=== PATIENT | male | born 1990 | race Caucasian/White ===

== ENCOUNTER → 2017-03-13 | Outpatient (CLI) | payer BC | LOC: MHCPAIN 08:09 | DX: G89.29 Other chronic pain (principal); M47.817 Spondylosis without myelopathy or radiculopathy, lumbosacral region; M54.16 Radiculopathy, lumbar region | CPT/HCPCS: G0463 ==

== ENCOUNTER 2017-06-01 07:30 | Outpatient (RCR) | payer BC | END 2017-06-02 12:48 | LOC: WSPT 07:30 | DX: M47.896 Other spondylosis, lumbar region (principal) | CPT/HCPCS: G0283-GP ==

== ENCOUNTER → 2017-06-10 | Outpatient (CLI) | payer BC | LOC: MHCPAIN 07:54 | DX: G89.29 Other chronic pain (principal); M47.27 Other spondylosis with radiculopathy, lumbosacral region | CPT/HCPCS: G0463 ==

== ENCOUNTER → 2017-06-11 | Outpatient (CLI) | payer BC | LOC: MHCPAIN 08:09 | DX: M47.27 Other spondylosis with radiculopathy, lumbosacral region (principal); M51.17 Intervertebral disc disorders with radiculopathy, lumbosacral region; M48.07 Spinal stenosis, lumbosacral region | CPT/HCPCS: J1100; Q9967 ==

== ENCOUNTER → 2017-06-26 | Outpatient (CLI) | payer BC | LOC: MHCPAIN 08:02 | DX: G89.29 Other chronic pain (principal); M47.27 Other spondylosis with radiculopathy, lumbosacral region | CPT/HCPCS: G0463 ==

== ENCOUNTER → 2017-07-02 | Outpatient (CLI) | payer BC | LOC: MHCPAIN 08:29 | DX: M47.27 Other spondylosis with radiculopathy, lumbosacral region (principal) | CPT/HCPCS: J1100; Q9967 ==

== ENCOUNTER → 2017-07-20 | Outpatient (CLI) | payer BC | LOC: MHCPAIN 09:15 | DX: G89.29 Other chronic pain (principal); M47.27 Other spondylosis with radiculopathy, lumbosacral region | CPT/HCPCS: G0463 ==

== ENCOUNTER → 2018-01-12 | Outpatient (CLI) | payer BC | LOC: MHCPAIN 08:27 | DX: G89.29 Other chronic pain (principal); M47.817 Spondylosis without myelopathy or radiculopathy, lumbosacral region; M54.16 Radiculopathy, lumbar region | CPT/HCPCS: G0463 ==

== ENCOUNTER → 2018-07-27 | Outpatient (CLI) | payer BC | LOC: MHCPAIN 15:30 | DX: G89.29 Other chronic pain (principal); M47.817 Spondylosis without myelopathy or radiculopathy, lumbosacral region; M54.16 Radiculopathy, lumbar region | CPT/HCPCS: G0463 ==